=== PATIENT | male | born 1990 | race Caucasian/White ===

== ENCOUNTER 2018-08-10 16:13 | Emergency (ER) | payer BC, OTHER ==
[2018-08-10 16:30] VITALS: BP 124/71
[2018-08-10] MEDS ORDERED: CHERRY SYRUP 10 ML UDC PO ONE (16:43)
[2018-08-10] MEDS ORDERED: DEXAMETHASONE 10 MG/ML VIAL PO STA (16:43)
--- NOTE | 2018-08-10 16:47 | ED Physician Documentation ---
PD HPI HEENT - Stated complaint Stated Complaint: SORE THROAT/SWEATS - Chief complaint Chief Complaint: Heent - History obtained from History obtained from: Patient - History of Present Illness Timing - onset: How many days ago (3) Timing - duration: Days Timing - details: Gradual onset, Still present Location: Throat Improves: Medication Worsens: Swalllowing Associated symptoms: Fever, Congestion, Rhinorrhea, Unable to swallow, Swollen nodes, Headache, Cough Similar symptoms before: Diagnosis (tonsillitis) Recently seen: Not recently seen - Additional information Additional information: 27-year-old male has developed a sore throat again with fever difficulty swallowing choking at night and difficulty sleeping. He has had recurrence of these symptoms over the past 6 months number of times and he wants to get into see an ENT about having his tonsils out. He states that every time he does anything more he is out in the wind or anything unusual he will get a sore throat and this will take him 5 to 7 days to improve. He has not been on any antibiotic with these recurrent episodes. am Review of Systems Constitutional: reports: Fever Eyes: denies: Decreased vision Ears: denies: Ear pain Nose: reports: Rhinorrhea / runny nose, Congestion Throat: reports: Sore throat, Swollen tonsils Cardiac: denies: Chest pain / pressure, Palpitations Respiratory: reports: Cough. denies: Dyspnea GI: denies: Vomiting PD PAST MEDICAL HISTORY - Past Surgical History Past Surgical History: Yes General: Appendectomy - Present Medications Home Medications: Ambulatory Orders Medication Instructions Recorded Confirmed Azithromycin [Zithromax] 250 mg PO DAILY #6 tablet 08/10/18 - Allergies Allergies/Adverse Reactions: Allergies Allergy/AdvReac Type Severity Reaction Status Date / Time Penicillins Allergy Hives Verified 08/10/18 16:30 - Social History Does the pt smoke?: No Smoking Status: Never smoker Does the pt drink ETOH?: No Does the pt have substance abuse?: No - Immunizations Immunizations are current?: Yes - POLST Patient has POLST: No PD ED PE NORMAL - Vitals Vital signs reviewed: Yes (normal ) - General General: Alert and oriented X 3, No acute distress, Well developed/nourished - HEENT HEENT: Atraumatic, PERRL, EOMI, Ears normal, Other (The tonsils are acutely inflammed, cryptic and exudative. They are 3+ in size. ) - Neck Neck: Supple, no meningeal sign, No bony TTP - Cardiac Cardiac: RRR, No murmur - Respiratory Respiratory: No respiratory distress, Clear bilaterally - Derm Derm: Normal color, Warm and dry, No rash - Extremities Extremities: No deformity, No edema - Neuro Neuro: Alert and oriented X 3, inspector of weights and measures 2-12 intact, No motor deficit, No sensory deficit, Normal speech Eye Opening: Spontaneous Motor: Obeys Commands Verbal: Oriented GCS Score: 15 - Psych Psych: Normal mood, Normal affect Results - Vitals Vitals: Vital Signs - 24 hr 08/10/18 16:27 Temperature 36.3 C L Heart Rate 84 Respiratory 16 Rate Blood Pressure 124/71 O2 Saturation 99 Oxygen O2 Source Room air PD MEDICAL DECISION MAKING - ED course Complexity details: considered differential, d/w patient ED course: 27-year-old male with a history of recurrent sore throats has developed another sore throat and on examination he has enlarged cryptic exudative tonsils. He has tonsils that look like they need to come out. He is administered dexamethasone 10 mg orally and here he is allergic to penicillin we will place him on a course of azithromycin and refer him to ENT. Departure - Departure Disposition: 01 Home, Self Care Clinical Impression: Tonsillitis Condition: Stable Instructions: ED Tonsillitis Follow-Up: Mike Ames MD [Primary Care Provider] - [facility] [Provider Group] Prescriptions: Azithromycin [Zithromax] 250 mg PO DAILY #6 tablet
== END 2018-08-10 17:04 | disposition home or self-care (01) ==
LOC: ED 16:13
DX: J03.90 Acute tonsillitis, unspecified (principal)
CPT/HCPCS: 99283; A9270

== ENCOUNTER 2020-12-08 15:40 | Outpatient (CLI) | payer BC, MEDICAID ==
--- NOTE | 2020-12-08 16:07 | XRAY Report ---
PROCEDURE: Chest 2 View X-Ray INDICATIONS: Chest pain TECHNIQUE: 2 view(s) of the chest. COMPARISON: None. FINDINGS: Surgical changes and devices: None. Lungs and pleura: No pleural effusions or pneumothorax. Lungs are clear. Mediastinum: Mediastinal contours are normal. Heart size is normal. Bones and chest wall: No suspicious bony abnormalities. Soft tissues appear unremarkable. IMPRESSION: No acute cardiopulmonary process demonstrated radiographically. Reviewed by: Jerry Shen MD on 12/08/2020 4:05 PM PDT Approved by: Jerry Shen MD on 12/08/2020 4:05 PM PDT Station ID: [id number]
== END 2020-12-08 23:59 | disposition home or self-care (01) ==
LOC: DI.N 15:40
PROVIDERS: ATTEND Nurse Practitioner
DX: R07.9 Chest pain, unspecified (principal)

== ENCOUNTER 2020-12-09 13:25 | Emergency (ER) | payer BC, MEDICAID ==
[2020-12-09 13:33] VITALS: BP 133/79
== END 2020-12-09 15:05 | disposition left against medical advice (07) ==
LOC: ED 13:25
DX: Z53.21 Procedure and treatment not carried out due to patient leaving prior to being seen by health care provider (principal)
CPT/HCPCS: 93005